=== PATIENT | male | born 1945 | race Two or more races ===

== ENCOUNTER 2019-12-30 13:22 | Emergency (ER) | payer MEDICARE, MEDICAID ==
[~2019-12-30] VITALS: Ht 172.7 cm; Wt 84.8 kg
[2019-12-30 13:40] VITALS: BP 108/64
--- NOTE | 2019-12-30 13:40 | NUR ---
ED Nurse Note: Patient from [facility] was brought in by [facility] due to left hand pain that radiates to his palm started yesterday. 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 Patient presented calm and cooperative, AAO x3, VSS at this time, stated no pain at this time, but it was pain 10/10 yestrday. Patient has cold to touch left arm, cap refil>3sec.
[2019-12-30] MEDS ORDERED: CATAPRES0.1 MG ORAL (13:41)
[2019-12-30] MEDS ORDERED: ASPIRIN81 MG ORAL (13:41)
[2019-12-30] MEDS ORDERED: ATORVASTATIN CA80 MG ORAL (13:41)
[2019-12-30] MEDS ORDERED: BETADINE1 EAC1 TP (13:41)
[2019-12-30] MEDS ORDERED: DOCUSATE SODIU100 MG ORAL (13:41)
[2019-12-30] MEDS ORDERED: DULCOLAX10 MG RC (13:41)
[2019-12-30] MEDS ORDERED: ASCORBIC ACID500 MG ORAL (13:41)
--- NOTE | 2019-12-30 13:43 | Emergency Room Report ---
History of Present Illness General Chief Complaint: Pain Source: Medical Record, EMS Present Illness HPI Patient is a 74-year-old male sent in from nursing facility for increased left arm pain. Patient had onset of symptoms last night. Patient was brought in by [facility] from nursing facility after ultrasound showed a brachial artery occlusion. Reports having severe sharp pain to the left upper extremity. 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 COVID-19 Screening: Negative COVID-19 COVID-19 Testing Source: 12/05/19 Patient History Reviewed Nursing Documentation: PMH: Agreed; PSxH: Agreed Nursing Documentation-PMH Past Medical History: No History, Except For Hx Hypertension: Yes - hyperlipidemia Hx Diabetes: Yes Review of Systems All Other Systems: negative except mentioned in HPI Physical Exam Vital Signs Date Time Temp Pulse Resp B/P (MAP) Pulse Ox O2 Delivery O2 Flow Rate FiO2 12/30/19 13:25 98.2 84 18 108/64 (79) 96 Room Air Sp02 EP Interpretation: reviewed, normal General Appearance: normal inspection, alert, GCS 15, Chronically Ill Head: atraumatic ENT: normal ENT inspection, hearing grossly normal, normal voice Neck: normal inspection, full range of motion, supple, no bony tend Respiratory: normal inspection, lungs clear, normal breath sounds, no respiratory distress, no retraction, no wheezing Cardiovascular #1: regular rate, rhythm, no edema Gastrointestinal: normal inspection, normal bowel sounds, non tender, soft, no guarding, no hernia Genitourinary: no CVA tenderness Musculoskeletal: normal inspection, back normal, normal range of motion, other - Right lower extremity with dressing in place. Neurologic: alert, motor strength/tone normal, responsive, speech normal, normal inspection Psychiatric: normal inspection, judgement/insight normal, mood/affect normal Skin: pallor - Pallor to the left upper extremity., other Medical Decision Making Diagnostic Impression: Primary Impression: Brachial artery occlusion, left ER Course Presented for left-sided hand pain. Differential diagnosis include was not limited to vascular occlusion, embolic disease, aortic dissection, mass among others. Because of complexity of patient's case laboratory tests and imaging studies were ordered. Patient's EKG showed normal sinus rhythm. Patient was given aspirin as well as heparin. Patient was discussed with Dr. Rayo who accepted the patient for transfer to [facility] due to vascular occlusion.Patient was endorsed to Dr. Tellez pending hospital acceptance. Labs Test 12/30/19 13:45 White Blood Count 10.6 K/UL (4.8-10.8) Red Blood Count 3.51 M/UL (4.70-6.10) Hemoglobin 8.0 G/DL (14.2-18.0) Hematocrit 27.0 % (42.0-52.0) Mean Corpuscular Volume 77 FL (80-99) Mean Corpuscular Hemoglobin 22.8 PG (27.0-31.0) Mean Corpuscular Hemoglobin Concent 29.7 G/DL (32.0-36.0) Red Cell Distribution Width 20.1 % (11.6-14.8) Platelet Count 541 K/UL (150-450) Mean Platelet Volume 5.4 FL (6.5-10.1) Neutrophils (%) (Auto) 82.4 % (45.0-75.0) Lymphocytes (%) (Auto) 10.9 % (20.0-45.0) Monocytes (%) (Auto) 5.3 % (1.0-10.0) Eosinophils (%) (Auto) 1.2 % (0.0-3.0) Basophils (%) (Auto) 0.2 % (0.0-2.0) Last Vital Signs Date Time Temp Pulse Resp B/P (MAP) Pulse Ox O2 Delivery O2 Flow Rate FiO2 12/30/19 13:25 98.2 84 18 108/64 (79) 96 Room Air Status: improved Disposition: SHORT-TERM HOSP Condition: Stable Horacio Sawnn MD Dec 30, 2019 13:43
--- NOTE | 2019-12-30 13:45 | NUR ---
ED Nurse Note: IV line was established on right AC 20ga, blood and urine colected sent to lab
[2019-12-30] MEDS ORDERED: GLUCAGON EMERGEN1 M1 SQ (13:54)
[2019-12-30] MEDS ORDERED: LEVEMIR FL100 UNIT/2 SQ (13:54)
[2019-12-30] MEDS ORDERED: IBUPROFEN600 M1 ORAL (13:54)
[2019-12-30] MEDS ORDERED: GABAPENTIN100 MG ORAL (13:54)
[2019-12-30] MEDS ORDERED: FUROSEMIDE20 M1 ORAL (13:54)
[2019-12-30] MEDS ORDERED: FOLIC ACID1 MG ORAL (13:54)
[2019-12-30] MEDS ORDERED: FERROUS SU220 MG/51 PO (13:54)
[2019-12-30] MEDS ORDERED: FLEET ENEMA133 ML RECTAL (13:54)
[2019-12-30] MEDS ORDERED: Heparin 5000 units/ml inj IV ONE (14:00)
[2019-12-30] MEDS ORDERED: Heparin 25,000u/D5W 500ml 500 ML IV SCH (14:00)
[2019-12-30 14:06] LABS: BASOPHILS % (AUTO) 0.2 % (0.0-2.0); EOSINOPHILS % (AUTO) 1.2 % (0.0-3.0); LYMPHOCYTES % (AUTO) 10.9 % (20.0-45.0); MEAN CORPUSCULAR VOLUME 77 FL (80-99); MONOCYTES % (AUTO) 5.3 % (1.0-10.0); NEUTROPHILS % (AUTO) 82.4 % (45.0-75.0); PLATELET COUNT 541 K/UL (150-450); RED BLOOD COUNT 3.51 M/UL (4.70-6.10); RED CELL DISTRIBUTION WIDTH 20.1 % (11.6-14.8); WHITE BLOOD COUNT 10.6 K/UL (4.8-10.8)
--- NOTE | 2019-12-30 14:14 | NUR ---
ED Nurse Note: Heparin drip was started at rate 12 units/kg/hr
[2019-12-30] MEDS ORDERED: MILK OF MA400 MG/51 ORAL (14:32)
[2019-12-30] MEDS ORDERED: ACETAMINOPHEN500 M5 ORAL (14:32)
[2019-12-30] MEDS ORDERED: TYLENOL325 MG ORAL (14:32)
[2019-12-30] MEDS ORDERED: LISINOPRIL20 MG ORAL (14:32)
[2019-12-30] MEDS ORDERED: MULTIPLE VITAM1 EAC6 PO (14:32)
[2019-12-30] MEDS ORDERED: SEROQUEL100 MG ORAL (14:32)
[2019-12-30] MEDS ORDERED: NOVOLOG100 UNIT/4 SQ (14:32)
[2019-12-30] MEDS ORDERED: NORCO 5-325 TA1 EAC1 ORAL (14:32)
[2019-12-30 14:44] LABS: CALCIUM 9.1 MG/DL (8.5-10.1); CREATININE 1.3 MG/DL (0.55-1.30); POTASSIUM 4.3 MMOL/L (3.5-5.1)
[2019-12-30 14:49] LABS: ALBUMIN 2.6 G/DL (3.4-5.0); ALBUMIN/GLOBULIN RATIO 0.6 (1.0-2.7); BILIRUBIN,TOTAL 0.3 MG/DL (0.2-1.0)
[2019-12-30 16:20] VITALS: BP 108/64
[2019-12-30] MEDS ORDERED: LORazepam Inj 2mg/ml 1ml IV ONE (16:45)
[2019-12-30 18:52] VITALS: BP 140/75
--- NOTE | 2019-12-30 18:52 | NUR ---
ED Nurse Note: Patient is sleeping, VSS at this time, NAD noted, patient aware about transfer
--- NOTE | 2019-12-30 19:14 | NUR ---
HAND-OFF: Report given to Edouard Gilbert RN.
--- NOTE | 2019-12-30 19:30 | NUR ---
ED Nurse Note: report given to tray nunez of [facility]. patient to be admitted to [facility] icu [id number] under the care of eliezer renteria.
[2019-12-30 20:46] VITALS: BP 132/73
[2019-12-30 21:10] VITALS: BP 132/73
--- NOTE | 2019-12-30 21:10 | NUR ---
ED Nurse Note: report given to [facility]. patient to be transported to [facility] icu [id number] under the care of eliezer renteria. patient stable for transport. patient to be transported with heparin drip; rn accompanied during transport. patient left with ems via gurney. left with all belongings.
== END 2019-12-30 21:10 | disposition short-term general hospital (02) ==
LOC: EDBD 13:22 → EMR 13:49
DX: I70.298 Other atherosclerosis of native arteries of extremities, other extremity (principal); E11.9 Type 2 diabetes mellitus without complications; E78.5 Hyperlipidemia, unspecified
CPT/HCPCS: 36415; 80053; 84484; 85025; 85610; 85730; 86850; 86900; 86901; 93005; 96365; 96366; 96375; 99285; J1644; U0002